=== PATIENT | female | born 1950 | race Caucasian/White ===

== ENCOUNTER 2016-06-01 07:57 | Day surgery (SDC) | payer MEDICARE, OTHER ==
[~2016-06-01] VITALS: Ht 154.9 cm; Wt 75.7 kg
[2016-06-01] VITALS (13 sets, daily range): BP systolic 100–141; BP diastolic 62–77; PULSE 80–116; RESP 10–18; O2SAT 93–100
[~2016-06-01 07:57] MED LIST: ACYC400T2 PO; ASCO-294 PO; CERA453C2 TP; CHOL500011 PO; CLOB15CR3 TP; CeFAZolin Inj 2 GM in IV Premix 1 EACH IV ONE; ECON15CR10 TP; KETACONAZOLE SHAMPOO TP; LEVO100T6 PO; calcium PO; fishoil PO
[2016-06-01] MEDS ORDERED: fentaNYL-PF 50 mCg/mL 2 mL Inj ONE (07:58)
[2016-06-01] MEDS ORDERED: Ketamine 10 mg/mL 20 mL Inj ONE (07:58)
[2016-06-01] MEDS ORDERED: Ondansetron 2 mg/mL 2 mL Inj ONE (07:58)
[2016-06-01] MEDS ORDERED: MetoCLOpramide 5 mg/mL 2 mL Inj ONE (07:58)
[2016-06-01] MEDS ORDERED: Propofol 10,000 mCg/mL 20 mL Inj ONE (07:58)
[2016-06-01] MEDS ORDERED: Dexamethasone 4 mg/mL Inj ONE (07:58)
[2016-06-01] MEDS ORDERED: Lactated Ringer's 1,000 ML IV ONE (08:30)
[2016-06-01] MEDS ORDERED: Lactated Ringer's 500 ML IV PRN (08:56)
[2016-06-01] MEDS ORDERED: Lactated Ringer's 1,000 ML IV SCH (08:56)
--- NOTE | 2016-06-01 08:58 | PCM.HPANE ---
Patient Data Surgeon Admitting Provider: Attending Provider:Rodrigo Lyn MD Primary Care Physician:Teo Adair MD Other Provider:Yousuf Stephen Anesthesia Reason for Visit Right Breast Cancer Ht/WT & BMI Height (Feet): 5 Height (Inches): 1 Weight (Kilograms): 76.657 Body Mass Index 31.00 Allergies Coded Allergies: TAPE (Verified Allergy, Intermediate, Red Rash (paper OK), 11/09/09) latex (Verified Allergy, Unknown, UNKNOWN, 05/27/16) Past Anesthesia History Anesthesia History: Denies:: Abnormal Airway, Anesthesia Reactions, Difficult Intubation, Malignant Hyperthermia Diabetes History Hx Diabetes?: No MRSA MRSA: No Medications Hypertension Medication: No Home Meds Incl Beta Prashant: No Reported Medications [Ketaconazole Shampoo] No Conflict Check1 Applic TP 2X/WEEK 2% 05/27/16 Econazole Nitrate 15 Gm Cream..g.1 Appl TP BID #1 TUBE 1% 05/27/16 Clobetasol Propionate/Emoll (Clobetasol Emollient 0.05% Crm)15 Gm Cream..g.1 Appl TP BID #1 TUBE 05/27/16 Ceramides 1,3,6-11 (Cerave)453 Gm Cream..g.1 Applic TP BID 05/27/16 Ascorbate Calcium (Vitamin C)500 Mg Nypzav263 Mg PO DAILY 05/27/16 Levothyroxine 100 Mcg Sgnthj139 Mcg PO DAILY For Thyroid Replacement Ref 0 05/12/16 Cholecalciferol (Vitamin D3) (Vitamin D3)5,000 Unit Tablet5,000 Unit PO DAILY 10/23/13 Acyclovir 400 Mg Adfxli080 Mg PO DAILY Ref 0 10/23/13 [calcium] No Conflict Hcgvs283 Mg PO DAILY 01/01/13 [fishoil] No Conflict Check1,000 Mg PO DAILY 01/01/13 Discontinued Reported Medications Lorazepam 0.5 Mg Tablet0.5 Mg PO QID PRN For Anxiety Ref 0 05/12/16 Vitamin B Complex (G-Lesofaz-Uwzljcq B-12)1 Each Tablet1 Each PO DAILY 01/01/13 History History of ENT Problems?: No Hx of Heart Problems?: Yes Cardiovascular History: Denies:: Heart Murmur Hypertension Irregular Heartbeat (HX NEAR SYNCOPE NOTED IN OLD RECORD) Hx of Respiratory Problem?: No Respiratory History: Denies:: Use of C-PAP Machine Hx Neurologic Problems?: Yes Neurological History: Positive for:: Dizziness (HX OF NEAR SYNCOPE) Other Neurological Pertinent: HX HSV Hx of GI Problems?: No Hx of Problems?: Yes Genitourinary History: Positive for:: Kidney Stones (HX OF) Female Hx: Positive for:: Problems with Breasts? (S/P LT BREAST BX/LUMPECTOMYW / AX NODE DISSECTION,MASTECTOMY FOR CA,RT BX) Denies:: Currently (S/P C/S X3) Skin History: Positive for:: History Skin Disorders? (RASHES) Denies:: Pressure Ulcers Hx Musculoskeletal Problems?: Yes Musculoskeletal History: Positive for:: Musculoskeletal Trauma (HX THUMB SPRAIN) Hx of Psycho/Social Problems?: Yes Psycho Social History: Positive for:: Anxiety (SITUATIONAL) Hx Surgeries?: Yes (LT BREAST BX,LUMPECTOMY W/ AX NODE DISSECTION,MASTECTOMY, RT BREAST BX,C/S X) Hx Any Other Health Problems?: Yes Other History: Positive for:: Cancer (B/L BREASTS) Thyroid Disease Denies:: Endocrine Disease Hospitalization Hx Diabetes: No Other Pertinent History: S/P EXC BX SUPRACLAVICULAR LYMPH NODE Stop/Bang Treated for Sleep Apnea?: No Do You Have a CPAP Machine?: No S-Snoring: Do You Snore Loudly: No T-Tired: feel tired, fatigued: No O-Obsered: Observed not breath: No P-Blood Pressure: treated: Yes B- Body Mass Index > 35 kg/m2: No A- Age over 50: Yes N- Neck Large Circumference: No G- Gender Male: No LEIF Total Score: 2 LEIF Risk Assessment: Low Risk, <3 Yes Risk Assessment Category Category 1A: Patient has history of documented sleep apnea, and HAS NOT received any narcotic, sedative or anesthesia administration during this stay. Category 1B: Patient has history of documented sleep apnea, and HAS received any narcotic , sedative or anesthesia administration during this stay Category 2: Patient has SUSPECTED Obstructive Sleep Apnea, and HAS received any narcotic , sedative or anesthesia administration during this stay. Category 3: Patient has SUSPECTED Obstructive Sleep Apnea and HAS NOT received narcotic, sedative or anesthesia administration during this stay. Category 4: Outpatient in Procedural Areas with known sleep apnea or who screen positive for High Risk via the STOP/BANG questionnaire. Exam Exam Vital Signs Vital Signs Date Time Temp Pulse Resp B/P Pulse Ox O2 Delivery O2 Flow Rate FiO2 06/01/16 08:37 36 97 17 141/77 100 Room Air General Appearance: Alert, Oriented X3, Cooperative, No Acute Distress HEENT/AIRWAY: MP 2 Lungs: Clear to Auscultation, Normal Air Movement Heart: Exam Unremarkable, Regular Rate/Rhythm, No Murmurs/Rubs/Gallops Meds/Labs/Diagnostics Admission Meds Current Medications Lactated Ringer's (Lr) 1,000 ml @ ud STK-MED ONCE IV Last administered on 06/01t 08:30; Start 06/01/16 at 08:30; Stop 06/01/16 at 08:33; Status DC Plan Impression Patient chart reviewed, patient interviewed and anesthestic plan with risks, benefits, and alternatives discussed, and informed consent obtained. NPO Status: 06/01@ 0500 water w am Rx ASA Physical Status: ASA2 Mod Systemic Disease Anesthetic Plan: GA Bene/Risks/Altern/Consents: Yes HP Complete Prior to Induction: Yes Other will prophylax for PONV Arnold Wolff MD Jun 01, 2016 08:58
[2016-06-01] MEDS ORDERED: EPHEDrine Sulfate 50 mg/mL Inj IVPUSH PRN (09:00)
[2016-06-01] MEDS ORDERED: MetoCLOpramide 5 mg/mL 2 mL Inj IVPUSH PRN ×2 (09:00→13:05)
[2016-06-01] MEDS ORDERED: Dexamethasone 4 mg/mL Inj IVPUSH PRN (09:00)
[2016-06-01] MEDS ORDERED: Ondansetron 2 mg/mL 2 mL Inj IVPUSH PRN ×2 (09:00→13:05)
[2016-06-01] MEDS ORDERED: fentaNYL-PF 50 mCg/mL 2 mL Inj IVPUSH PRN (09:00)
[2016-06-01] MEDS ORDERED: Phenylephrine 10,000 mCg/mL Inj IVPUSH PRN (09:00)
[2016-06-01] MEDS ORDERED: HYDROmorphone 1 mg/mL Inj IVPUSH PRN (09:00)
[2016-06-01] MEDS ORDERED: Bupivacaine-MPF 0.5% 30 mL Inj INFILTRATE ONE (11:09)
--- NOTE | 2016-06-01 11:09 | DRSVH ---
PROCEDURE: NM SENTINEL NODE INJECTION ONLY, RIGHT BREAST RADIOPHARMACEUTICAL: 0.5 mCi Millipore filtered Tc-99m sulfur colloid. INDICATIONS: RIGHT BREAST CANCER PROCEDURE: The indications, alternatives, benefits, risks, and complications of the procedure were explained to the patient. Written informed consent was obtained and placed in the chart. The area around the nip ple was prepped and draped in a sterile fashion. Tc-99m sulfur colloid was injected in the outer edg e of the areola in the right breast. No image was obtained. IMPRESSION: Administration of radiotracer into the right breast periareolar region for intra-operati ve sentinel lymph node localization. Dictated by: Megha Gustafson M.D. on 06/01/2016 at 11:07 Approved by: Megha Gustafson M.D. on 06/01/2016 at 11:08
--- NOTE | 2016-06-01 13:08 | PCM.SURGPO ---
Immediate Operative Note Date of Surgery: Jun 01, 2016 Pre Operative Diagnosis Right Breast Cancer Post Operative Diagnosis Right Breast Cancer Procedure Right Simple Mastectomy with [place] lymph node biopsy Surgeon and Manager Medical Affairs Surgeon: Rodrigo Lyn MD Assistants: Kathryn Appiah PAC Findings 2 sentinel lymph nodes removed Complications There were no periprocedural complications identified. Surgical Specimen Removed: Yes Specimen sent to Pathology: Yes Anesthetic Administered: GA Grafts, Implants: None Output, Estimated Blood Loss: 10 Blood Admin during surgery: No Attending Statement Diecast Machine Operator listed was medically necessary for the successful completion of the case Rodrigo Lyn MD Jun 01, 2016 13:08
--- NOTE | 2016-06-01 13:33 | PCM.ANEP1 ---
Post Anesthesia Phase 1 PACU Phase 1 Assessment Date of Service: Jun 01, 2016 Vital Signs Vital Signs Date Time Temp Pulse Resp B/P Pulse Ox O2 Delivery O2 Flow Rate FiO2 06/01/16 13:15 110 16 135/68 99 Room Air 06/01/16 13:10 116 14 128/74 100 Room Air 06/01/16 13:05 116 12 125/66 100 Simple Mask 8 06/01/16 13:00 36.3 114 12 121/65 100 Simple Mask 8 06/01/16 08:37 36 97 17 141/77 100 Room Air Anesthetic Administered: GA Level of Alertness: Awake, talking Pain: No Nausea or Vomiting: No Oxygen Delivery: Room Air Lungs: Clear to Auscultation, Normal Air Movement Js Garcia MD Jun 01, 2016 13:33
--- NOTE | 2016-06-01 13:33 | PCM.ANEP2 ---
Post Anesthesia Evaluation ASA/CMS Post Anesthesia VS in Patient's Normal Range?: Yes Resp Stable; Airway Patent?: Yes CV Function & Hydration Stable: Yes Mental Status Recovered?: Yes Pain control Satisfactory?: Yes N/V Control Satisfactory?: Yes Js Garcia MD Jun 01, 2016 13:33
[2016-06-01] MEDS ORDERED: HYDROmorphone 0.5 mg/0.5 mL iSecure Syringe ONE (14:14)
--- NOTE | 2016-06-01 14:30 | NUR ---
PostOp Pt comes via keyanna. Sleepy but alert and oriented X4. Moved over to bed one own. Denies CP, SOB, nausea, or intolerable pain at this time. IV Lt FA in use. All sensation in tact. Incision Dermabond Right breast, FREDRICK drain in Right lat breast to suction. Care continues
--- NOTE | 2016-06-01 16:41 | OP ---
[address] [address] OPERATIVE REPORT PATIENT: LAXMI ORTIZ : 1950 MR#: [id number] ADMIT: 06/01/2016 JOB ID: [id number] DATE OF SURGERY: 06/01/2016 PREOPERATIVE DIAGNOSIS(ES): T1 N0 right breast cancer. POSTOPERATIVE DIAGNOSIS(ES): T1 N0 right breast cancer. PROCEDURE PERFORMED: Right simple mastectomy with right axillary sentinel lymph node biopsy. SURGEON: Rodrigo Lyn MD CLERK TYPIST: Kathryn Appiah PA-C CONDITION OF THE PATIENT: Stable. COMPLICATIONS: None. INDICATIONS: The patient is a 66-year-old lady who presented with ER positive, HER-2 negative T2 N2 left breast cancer in 2002 treated with neoadjuvant chemotherapy followed by left partial mastectomy with axillary lymph node dissection and eventually left completion mastectomy. She then got radiation to the chest wall and tamoxifen. In 2009 she presented with triple negative recurrent metastatic breast cancer in the left subclavicular fossa. She was then treated with gemcitabine and carboplatin followed by radiation and after she started more therapy, she developed a submandibular lymph node recurrence prompting more radiation. She finished the treatment in 2010 and she has had no evidence of disease since then. She was recently found to have a right-sided breast cancer on a screening mammogram. It showed a 1.1 cm oval mass in the right breast at 8 o'clock middle depth. She had an ultrasound-guided biopsy and was biopsied to show invasive ductal carcinoma. Breast MRI showed some additional questionable lesions, but as she wanted to proceed with mastectomy, we did not further pursue those lesions with either ultrasound or biopsies. PROCEDURE DETAILS: She had a radionuclide injection in the day surgery area. She was brought to the operating room and underwent smooth induction of general anesthesia. The right breast and axilla were prepped and draped in the usual sterile fashion. Surgical time-out was undertaken using safety checklist, and all were in agreement. I first began by marking an elliptical incision around the nipple to match with the previous left mastectomy scar. I then raised skin flaps superiorly and inferiorly, medially and laterally the breast tissue from the skin while preserving blood supply to the skin. We took this dissection superiorly almost to the clavicle medially to the midline and inferiorly to the inframammary fold and laterally to the midaxillary line. After getting down to the chest wall medially, started the breast off the pectoralis muscle controlling the perforators with electrocautery. After lifting the breast completely away from the pectoralis fascia before detaching it from the axilla, I again used the gamma probe to look for any evidence of increased radiotracer activity in the axillary tail, but I could not find. After that I detached the breast from the axilla and passed off the specimen, and upon further interrogation of the axilla with the wound opened, I noticed activity of close to 50 count in the superior superficial lymph node that was palpable. I excised this node and Xofigo count again on this was found to be a maximum of 50, but even after that there was a background count going up to 100, especially inferiorly. I was able to identify a second axillary sentinel lymph node which I excised with a combination of blunt and sharp dissection and Xofigo count on that was noted to be 120. After that was removed, the background count in the axilla was close to 0. Of note, because of the lack of good axillary counts through the skin before making the incision, we actually injected 1 mL of methylene blue in a subdermal location and underneath the areola before the operation and massaged it for a few minutes before prepping the skin, but none of the lymph nodes within the axilla showed any blue dye. After ensuring good hemostasis, we placed a #15 FREDRICK through a lateral stab incision and closed the skin in layers with 3-0 Vicryl interrupted followed by 4-0 Monocryl. Dermabond was applied as dressing. The patient was recovered from anesthesia and was taken to the recovery room in a stable condition.
[2016-06-01] MEDS: HYDROmorphone 1 mg/mL Inj IVPUSH PRN ×2 (16:54→23:50)
[2016-06-01 17:32] LABS: APPEARANCE,URINE HAZY (CLEAR,HAZY); COLOR,URINE GREEN (YELLOW); OCCULT BLOOD,URINE NEGATIVE (NEGATIVE); UROBILINOGEN,URINE NORMAL (NORMAL)
[2016-06-02 00:08] VITALS: BP 104/60; PULSE 77; RESP 18; O2SAT 93
--- NOTE | 2016-06-02 04:08 | NUR ---
Pain Patient states pain is fairly well managed with Dilaudid .5mg and Tylenol, but patient would prefer something PO for pain. Dilaudid causes her to feel a little groggy. Dr. Lyn contacted and gave T.O. for Roxycodone 2.5-5mg PO prn for pain. Patient A&Ox3. Vitals stable. Rm air. Up independent to bathroom.
[2016-06-02 04:50] VITALS: BP 96/57; PULSE 77; RESP 16; O2SAT 94
[2016-06-02] MEDS ORDERED: Acyclovir 400 mg Tablet PO SCH (08:30)
[2016-06-02] MEDS ORDERED: Acetaminophen PO (09:28)
[2016-06-02] MEDS ORDERED: IBUP-1827 PO (09:28)
[2016-06-02] MEDS ORDERED: OXYC5TAB72 PO (09:28)
--- NOTE | 2016-06-02 11:20 | PCM.DISURG ---
Surgical Discharge Instruction Date of Service Jun 02, 2016 Dates of Hospitalization Date of Hospital Admission Providers Admitting Physician: Primary Care Physician: Teo Adair MD Attending Physician: Rodrigo Lyn MD Discharge Diagnosis Post Operative diagnosis Right Breast Cancer s/p Right Simple Mastectomy with [place] lymph node biopsy Diet Discharge Diet: No restrictions Activity Discharge Activity-General: Be up and about Dressing and Incisional Care Dressing Care: Change soiled dressing (around the drain as needed) Hygiene: May shower, DO NOT soak incision under water Follow Up Plan Follow Up Plan Keep track of FREDRICK output - follow up for drain removal when output less than 30ml for 2 days in a row Follow-up Provider (F9): Rodrigo Lyn MD Call your provider for: Fever, Chills, Shortness of breath, Nausea, Vomiting, Wound redness, Increasing wound pain, Warmth to touch, Discharge @ incision, pus discharge Rodrigo Lyn MD Jun 02, 2016 11:20
--- NOTE | 2016-06-02 16:44 | NUR ---
Discharge Pt discharged at 1420 to private vehicle with family. FREDRICK teaching done and pt understands when to call MD for removal. Pain well controlled 06/20 and pt medicated prior to discharge. Pt has all care notes, discharge instructions and rx's. All questions answered and pt has all belongings. IV removed intact. Incision has no dressing and is well approximated. VSS, MARISSA, A&O x 3.
--- NOTE | 2016-06-03 12:01 | PCM.DC.SUR ---
Discharge Summary Date of Service: Date of Hospital Admission: 06/01/16 Date of Operation(s): 05/31/16 Date of Discharge: Jun 02, 2016 at 14:17 Diagnosis at Time of Discharge Primary Diagnosis: T1 N0 right breast cancer. Problems: Operation Right simple mastectomy with right axillary sentinel lymph node biopsy. Brief History and Physical: The patient is a 66-year-old lady who presented with ER positive, HER-2 negative T2 N2 left breast cancer in 2002 treated with neoadjuvant chemotherapy followed by left partial mastectomy with axillary lymph node dissection and eventually left completion mastectomy. She then got radiation to the chest wall and tamoxifen. In 2009 she presented with triple negative recurrent metastatic breast cancer in the left subclavicular fossa. She was then treated with gemcitabine and carboplatin followed by radiation and after she started more therapy, she developed a submandibular lymph node recurrence prompting more radiation. She finished the treatment in 2010 and she has had no evidence of disease since then. She was recently found to have a right-sided breast cancer on a screening mammogram. It showed a 1.1 cm oval mass in the right breast at 8 o'clock middle depth. She had an ultrasound-guided biopsy and was biopsied to show invasive ductal carcinoma. Breast MRI showed some additional questionable lesions, but as she wanted to proceed with mastectomy, we did not further pursue those lesions with either ultrasound or biopsies. Consultants: NONE Hospital Course: Per Dr. Lyn's discharge instructions: Keep track of FREDRICK output - follow up for drain removal when output less than 30ml for 2 days in a row Pathology: Pending Disposition: Home with drain Follow-up Plan: General surgery clinic when drain output is less than 20 ml/24hr 2 days ([fishoil]) 1,000 MG PO DAILY (Reported) ([calcium]) 500 MG PO DAILY (Reported) ([Ketaconazole Shampoo]) 1 APPLIC TP 2X/WEEK (Reported) 2% ([Acetaminophen]) 325 MG TABLET 650 MG PO Q6H PRN PRN For Moderate Pain Acyclovir (Acyclovir) 400 Mg Tablet 400 MG PO DAILY (Reported) Ascorbate Calcium (Vitamin C) 500 Mg Tablet 500 MG PO DAILY (Reported) Ceramides 1,3,6-11 (Cerave) 453 Gm Cream..g. 1 APPLIC TP BID (Reported) Cholecalciferol (Vitamin D3) (Vitamin D3) 5,000 Unit Tablet 5,000 UNIT PO DAILY (Reported) Clobetasol Propionate/Emoll (Clobetasol Emollient 0.05% Crm) 15 Gm Cream..g. 1 APPL TP BID (Reported) Econazole Nitrate (Econazole Nitrate) 15 Gm Cream..g. 1 APPL TP BID (Reported) 1% Ibuprofen (Ibuprofen) 600 Mg Tablet 600 MG PO QID PRN PRN For Pain Levothyroxine (Levothyroxine) 100 Mcg Tablet 100 MCG PO DAILY (Reported) oxyCODONE (oxyCODONE) 5 Mg Tablet 2.5-5 MG PO Q4H PRN PRN For Moderate Pain copies to: Teo Adair MD, Sherri L PA-C Jun 03, 2016 12:01
--- NOTE | 2016-06-07 15:15 | PATH ---
SURGICAL PATHOLOGY Attending Physician:Rodrigo Lyn MD CASE STATUS: Signed Out PATIENT NAME: LAXMI ORTIZ PID: [id number] : 1950 DATE COLLECTED:06/01/2016 20:50 SPECIMEN: 1: [place] Lymph Node 2: Breast, Simple Mastectomy (lymph nodes submitted separately) 3: [place] Lymph Node CLINICAL HISTORY: HISTORY OF BREAST CANCER: T2N2 LEFT BREAST LOBULAR CARCINOMA IN 2002 TREATED WITH NEOADJUVANT CHEMOTHERAPY, LUMPECTOMY FOLLOWED BY MASTECTOMY AND THEN RADIATION TO CHEST WALL AND TAMOXIFEN. 1). RIGHT AXILLARY SENTINEL NODE #1 2). RIGHT BREAST STITCH SUPERIOR 3). RIGHT AXILLARY SENTINEL NODE #2 FINAL DIAGNOSIS: 1.RIGHT AXILLARY SENTINEL LYMPH NODE #1, EXCISION: ONE SENTINEL LYMPH NODE, NEGATIVE FOR METASTATIC CARCINOMA. PLEASE SEE SUMMARY CANCER DATA BELOW. 2.RIGHT BREAST, MASTECTOMY: INVASIVE DUCTAL CARCINOMA. PLEASE SEE SUMMARY CANCER DATA BELOW. 3.RIGHT AXILLARY SENTINEL NODE #2, EXCISION: ONE SENTINEL LYMPH NODE, NEGATIVE FOR METASTATIC CARCINOMA. PLEASE SEE SUMMARY CANCER DATA BELOW. CAP CANCER CASE SUMMARY INVASIVE CARCINOMA OF THE BREAST: PROCEDURE: TOTAL MASTECTOMY LYMPH NODE SAMPLING: SENTINEL LYMPH NODES AND INTRAMAMMARY LYMPH NODE SPECIMEN LATERALITY: RIGHT TUMOR SITE: 8 O' CLOCK TUMOR SIZE: 0.8 CM HISTOLOGIC TYPE: INVASIVE MAMMARY CARCINOMA OF NO SPECIAL TYPE (DUCTAL, NOT OTHERWISE SPECIFIED) HISTOLOGIC GRADE: MASSIEL HISTOLOGIC SCORE Glandular/Tubular differentiation: Score 3 Nuclear Pleomorphism: Score 2 Mitotic Rate: Score 1 Overall Grade: Grade 2 TUMOR FOCALITY: SINGLE FOCUS OF INVASIVE CARCINOMA DUCTAL CARCINOMA IN SITU: NO DCIS IS PRESENT MACROSCOPIC AND MICROSCOPIC EXTENT OF TUMOR SKIN: NOT INVOLVED NIPPLE: NOT INVOLVED SKELETAL MUSCLE: NOT INVOLVED MARGINS INVASIVE CARCINOMA: ALL MARGINS ARE GREATER THAN 1.0 CM FROM THE INVASIVE CARCINOMA LYMPH NODES Total number of lymph nodes examined: 3 Number of sentinel lymph nodes examined: 2 Lymph Node Involvement: 0 Number of lymph nodes with macrometastases: 0 Number of lymph nodes with micrometastases: 0 Number of lymph nodes with isolated tumor cells: 0 Extranodal Extension: NOT APPLICABLE Method of Evaluation of [place] Lymph Nodes: H&E, MULTIPLE LEVELS LYMPH-VASCULAR INVASION: NOT IDENTIFIED DERMAL LYMPH-VASCULAR INVASION: NOT IDENTIFIED PATHOLOGIC STAGING: AJCC, 7th ed., 2010 PRIMARY TUMOR: pT1b REGIONAL LYMPH NODES: pN0 ADDITIONAL PATHOLOGIC FINDINGS: -MICROCALCIFICATIONS PRESENT IN ASSOCIATION WITH NEOPLASTIC AND NONNEOPLASTIC TISSUE. -PATCHY FIBROCYSTIC-TYPE CHANGES, INCLUDING MICROCYSTS, FIBROSIS, USUAL DUCTAL HYPERPLASIA, SCLEROSING ADENOSIS, FLORID DUCTAL HYPERPLASIA, AND APOCRINE METAPLASIA. -BIOPSY SITE CHANGES ARE PRESENT. -INCIDENTAL SEBORRHEIC KERATOSIS AND CAPILLARY HEMANGIOMA. ANCILLARY STUDIES: Biomarkers Performed Previously on Case: [id number] ([facility], [facility]) Estrogen Receptor (ER) Status: POSITIVE, GREATER THAN 95% OF CELLS, PER REPORT Progesterone Receptor (PgR) Status: POSITIVE, GREATER THAN 95% OF CELLS, PER REPORT HER2 (by immunohistochemistry): NEGATIVE, SCORE 1+, PER REPORT ICD10 code C50.919 GROSS DESCRIPTION: The specimens are received in formalin, labeled with the patient's name, and sublabeled as the following: (1) right axillary sentinel node #1; (2) right breast, stitch superior; (3) right axillary sentinel node #2. (1) The specimen consists of a lymph node (2.3 x 1.6 x 1.2 cm). Section code: (1A-1B) one lymph node, serially sectioned. Specimen entirely submitted. (2) the specimen consists of a right breast (5.3 cm AP, 20.2 cm SI, 21.3 cm ML) partially covered by an ellipse of skin (8.7 cm SI, 19.1 cm ML) with nipple/areola complex (4.5 x 3.7 cm). The axillary tail is absent. The specimen is oriented with a black suture indicating the superior margin. No localization wire is present. The skin is arizmendi-pink and contains multiple brown rubbery papules (0.1 x 0.1 x 0.1 cm-0.2 x 0.2 x 0.1 cm). The skin is partially stained blue at the 5:00 to 7:00 skin margin. The specimen is serially sectioned ML into 37 slices with the medial and lateral resection margins as slices #1 and #37 respectively. The breast tissue is fibrofatty and contains a martinez white solid firm and gritty well-circumscribed mass (1.1 x 1.0 x 1.0 cm) within slices #8-#9 at approximately 5:00. The mass is 4.3 cm from the skin surface, 4.5 cm from the posterior, and 12.2 cm from the superior, 6.5 cm from the inferior, 4.3 cm from the medial, and 15.9 cm from the lateral resection margins. No other nodules, masses or lesions are identified. Ink code: purple-anterior; yellow-posterior; black-superior; orange-inferior; green-medial; blue-lateral. Section code: (2A) nipple; (2B) skin; (2C) medial resection margin, perpendicularly sectioned, motor vehicle representative; (2D) slice #5, motor vehicle representative; (2E) slice #6, motor vehicle representative; (2F) slice #7, tissue adjacent to mass and additional motor vehicle representative; (2G) slice #8, motor vehicle representative; (2H) slice #9, motor vehicle representative; (2I, 2J) slice #10, tissue adjacent to mass and additional motor vehicle representative; (2K) slice #11, motor vehicle representative; (2L) slice #13, motor vehicle representative; (2M) slice #15, motor vehicle representative; (2N) slice #20, motor vehicle representative; (2O) slice #21, motor vehicle representative; (2P) slice #24, motor vehicle representative; (2Q) slice #25, motor vehicle representative; (2R) slice #28, motor vehicle representative; (2S) lateral resection margin, perpendicularly sectioned, motor vehicle representative. Note: The specimen was reviewed by Dr. Fariba Munoz. (3) The specimen consists of a blue stained lymph node (1.5 x 0.7 x 0.7 cm) with attached adipose tissue. Section code: (3A) one lymph node, serially sectioned; (3B) remaining adipose tissue. Specimen entirely submitted. Note: Approximate total fixation time in formalin-55 hours and 30 minutes using a collection date of June 01, 2016 with no collection time or time in fixative given. 06/02/16 JM MICRO DESCRIPTION: An immunohistochemical stain was performed to further characterize the malignant cells. A control stain showed appropriate reactivity. Result: E-cadherin: Uniformly positive. Interpretation: Consistent with ductal carcinoma. This test was developed and its performance characteristics determined by [employer]. It has not been cleared or approved by the U. S. Food and Drug Administration. The FDA has determined that such clearance or approval is not necessary. This test is used for clinical purposes. It should not be regarded as investigational or for research. ICD-9 CODES: CPT CODES: 1: 57482 2: 47121, 05166 3: 39226 PROCEDURE/ADDENDA: Addendum SPI Addendum Diagnosis TEST: ONCOTYPE DX Recurrence Score Result: 2 ER Score: 11.4 Positive MO Score: >10.0 Positive HER2 Score: 9.3 Negative Addendum Comment Please see [facility] Report [id number] for complete details. Testing and interpretation done by [facility], [place], [place]. Testing requested by Dr. Olivia Stephenson, [facility], per clinician request at [facility]. Electronically Signed Out Olivia Stephenson MD Electronically Signed Out Olivia Stephenson MD [facility] [address], [place] [address] Technical component performed at [facility], [address], [place], [address]
== END 2016-06-02 14:17 | disposition home or self-care (01) ==
LOC: SAS 07:57 → OSC 14:31 → SAS 06-02 14:17
PROVIDERS: ATTEND Student in an Organized Health Care Education/Training Program
DX: C50.211 Malignant neoplasm of upper-inner quadrant of right female breast (principal); E03.9 Hypothyroidism, unspecified; F41.9 Anxiety disorder, unspecified; Z87.442 Personal history of urinary calculi; Z80.3 Family history of malignant neoplasm of breast; Z85.3 Personal history of malignant neoplasm of breast; Z17.0 Estrogen receptor positive status [ER+]; Z92.3 Personal history of irradiation
CPT/HCPCS: 19303; 38525; 38792; 81000; 97110; A9541; J0690; J1100; J1170; J2250; J2405; J2765; J3010; J7120

== ENCOUNTER 2016-09-10 12:59 | Emergency (ER) | payer OTHER ==
[~2016-09-10] VITALS: Ht 154.9 cm; Wt 75.0 kg
[~2016-09-10 12:59] MED LIST changes: +ACYC200C PO; -ACYC400T2 PO; -ASCO-294 PO; +Acetaminophen PO; +CATAPLEX D PO; -CHOL500011 PO; +CYAN500 PO; -CeFAZolin Inj 2 GM in IV Premix 1 EACH IV ONE; +IBUP-1827 PO; -KETACONAZOLE SHAMPOO TP; +KRIL1CAP19 PO; +LETR2.5T4 PO; +VITA150T PO; +[UNRECOGNIZED DRUG - OTHER] PO; +[UNRECOGNIZED DRUG - OTHER] PO; -fishoil PO
[2016-09-10 13:03] VITALS: BP 150/88; PULSE 84; RESP 16; O2SAT 99
--- NOTE | 2016-09-10 15:13 | ED.REPORT ---
HPI-Extremity Problem Upper Date of Service Sep 10, 2016 ED Provider: Ruddy Sanchez MD Pt is a 66 year old female presenting to the ED complaining of left arm swelling onset 1 month ago intermittent since then. Pt had a left mastectomy in 2002 and a right mastectomy in May 2016. Denies any chest pain, SOB, or any other symptoms at this time. She was checked up on by Dr. Verma 1 week ago post surgery and was cleared. Denies any injury, recent long car rides, recent surgeries, or history of blood clot. Nursing Notes Stated Complaint: L ARM SWELLING Chief Complaint: Extremity Trauma Nursing Notes Reviewed: Yes Allergies: Coded Allergies: TAPE (Verified Allergy, Intermediate, Red Rash (paper OK), 09/10/16) latex (Verified Allergy, Unknown, UNKNOWN, 09/10/16) Scheduled ([calcium]) 6 TABLET PO DAILY ([cataplex D]) 4 TABLET PO DAILY ([cataplex c]) 1 TABLET PO DAILY ([drenatrophin PMG]) 1 TABLET PO TID Acyclovir (Acyclovir) 200 Mg Capsule 200 MG PO BID Ceramides 1,3,6-11 (Cerave) 453 Gm Cream..g. 1 APPLIC TP BID Clobetasol Propionate/Emoll (Clobetasol Emollient 0.05% Crm) 15 Gm Cream..g. 1 APPL TP BID Cyanocobalamin (Vitamin B12) 500 Mcg Tablet 1,000 MCG PO DAILY Econazole Nitrate (Econazole Nitrate) 15 Gm Cream..g. 1 APPL TP BID 1% Krill/Om-3/Dha/Epa/Phospho/Ast (Krill Oil 500 mg Softgel) 1 Each Capsule 1 EACH PO DAILY Letrozole (Letrozole) 2.5 Mg Tablet 2.5 MG PO DAILY Levothyroxine (Levothyroxine) 100 Mcg Tablet 100 MCG PO DAILY Vitamin B Complex & Vit C No.4 (Super B Complex) 150 Mg Tablet 150 MG PO DAILY Scheduled PRN ([Acetaminophen]) 325 MG TABLET 650 MG PO Q6H PRN PRN For Moderate Pain Ibuprofen (Ibuprofen) 600 Mg Tablet 600 MG PO QID PRN PRN For Pain General Time Seen by MD: 13:05 Chief Complaint Other (Left arm swelling) Hx Obtained From: Patient Arrived By: Walk-in Onset Occurred: Just prior to arrival Symptom Duration: Since onset Location: : Arm left Quality: Painful Severity: Current: Mild Severity: Maximum: Mild Recent Healthcare: No recent doctor visit, No recent hospitalization, Previous surgery Similar Sx Previous: No Past Medical History Past Medical History Breast Cancer Past Surgical History Breast cancer with bilateral mastecomy (R May 2016, L 2002) Smoking History Unknown if Ever Smoker Ambulatory Status Independent Review of Systems Musculoskeletal: Reports: Extremity swelling Complete sys rev & neg: except as marked. Respiratory: Denies: Shortness of breath Cardiovascular: Denies: Chest pain GI: Denies: Abdominal pain, Vomiting Physical Exam Initial Vital Signs Vital Signs (First) Date Time Temp Pulse Resp B/P Pulse Ox O2 Delivery O2 Flow Rate FiO2 09/10/16 13:03 36.9 84 16 150/88 99 Room Air Initial VS: Reviewed General/Constitutional: Well-developed, Well-nourished Head / Eyes: Atraumatic, Normocephalic, PERRL ENT: Mucous membranes moist, Conjunctiva normal, No scleral icterus Respiratory: Breath sounds normal, Clear to auscultation, No respiratory distress Cardiovascular: Regular rate & rhythm, Heart sounds normal, Intact distal pulses Abdomen / GI: Soft, Non-tender, No guarding, No rebound, No distention Lower Extremities: Vascular intact, Neuro intact, No swelling, No tenderness Skin: Warm, Dry, No cyanosis Neurologic: Alert, Oriented, Nonfocal Psychiatric: Mood/affect normal, Behavior normal, Normal thought content Upper Extremity / MS: Full range of motion, No deformity, Neurologic intact, Vascular intact Diffuse edema left upper extremity. Re-Eval/Medical Decision Med Decision/Clinical Course 66-year-old female with bilateral mastectomy presenting with left arm swelling. There is no redness or sign symptoms infection. Her left upper extremity Doppler shows no DVT. This is likely poor lymphatic drainage due to history of mastectomy. I see no acute emergent issue. She is advised to follow-up with her primary doctor next week. Re-Evaluation/Progress : Time of Eval: 15:00 Patient Status: Condition improved Re-Evaluation/Progress Note: Discussed PMHX and plan for ultrasound. Counseled Regarding: Diagnosis, Lab results, Need for follow-up, When/why to return to ED Discharge & Departure Disposition: Home Discharge Condition All VS Reviewed: Yes Condition: Improved Referrals: Teo Adair MD (PCP) GjersMatthew camacho MD Attestation Portions of this note were transcribed by Na Castorena. I, Dr. Sanchez personally performed the history, physical exam and medical decision-making; I reviewed and confirmed the accuracy of the information in the transcribed note. Signed by: Sandee Linares, 09/10/2016 at 1530. copies to: Matthew Verma MD; Teo Adair MD, Ben M MD Sep 10, 2016 15:13 NA CASTORENA Sep 10, 2016 15:18
--- NOTE | 2016-09-11 08:54 | DRSVH ---
PROCEDURE: US VENOUS ARM DUPLEX UNILATERAL, LEFT INDICATIONS: LUE Swelling r/o dvt TECHNIQUE: Real-time imaging, as well as color and pulse Doppler interrogation, was performed of the left upper extremity deep veins from the inferior neck to the antecubital fossa. COMPARISON: None. FINDINGS: The internal jugular vein, visualized portions of the subclavian vein, axillary, and brach ial veins are free of intraluminal thrombus. Where physically possible, the veins are normally compr essible. Color and pulse Doppler demonstrate normal intraluminal flow, with expected phasicity and p ulsatility. Additional scanning of the cephalic and basilic veins of the superficial system demonstr ate normal compressibility, without thrombus. IMPRESSION: No DVT found. Dictated by: Addison Griffin M.D. on 09/11/2016 at 8:51 Approved by: Addison Griffin M.D. on 09/11/2016 at 8:52
== END 2016-09-10 18:35 | disposition home or self-care (01) ==
LOC: SED 12:59
DX: M79.89 Other specified soft tissue disorders (principal); Z85.3 Personal history of malignant neoplasm of breast; Z79.899 Other long term (current) drug therapy; Z91.040 Latex allergy status